=== PATIENT | female | born 1980 | race Two or more races ===

== ENCOUNTER 2022-02-27 08:06 | Emergency (ER) | payer MEDICAID ==
[~2022-02-27] VITALS: Ht 154.9 cm; Wt 61.2 kg
[2022-02-27 08:15] VITALS: BP 125/86
[2022-02-27] MEDS ORDERED: LIDOCAINE 1%-EPI 1:100,000 20 ML VIAL ONE (08:23)
[2022-02-27] MEDS ORDERED: LIDOCAINE 1%-EPI 1:100,000 20 ML VIAL TP ONE (08:30)
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
--- NOTE | 2022-02-27 08:33 | NUR ---
SUTURING DONE BY .
--- NOTE | 2022-02-27 08:45 | NUR ---
JAVAD MORRIS AT BEDSIDE FOR WOUND DRESSING.
--- NOTE | 2022-02-27 08:50 | NUR ---
Patient discharged to home in stable condition. Written and verbal after care instructions given. Patient verbalizes understanding of instruction.
== END 2022-02-27 08:50 | disposition home or self-care (01) ==
LOC: ER 08:11
DX: S61.411A Laceration without foreign body of right hand, initial encounter (principal); W26.9XXA Contact with unspecified sharp object(s), initial encounter; Y93.89 Activity, other specified; Y92.89 Other specified places as the place of occurrence of the external cause; Y99.8 Other external cause status
CPT/HCPCS: 12001; 99282; A6403; J3490